=== PATIENT | female | born 1980 | race Caucasian/White ===

== ENCOUNTER 2017-04-15 17:47 | Emergency (ER) | payer MEDICAID ==
[2017-04-15] MEDS ORDERED: LIDOCAINE PATCH 5% TOP STA (18:17)
[2017-04-15] MEDS ORDERED: KETOROLAC 60 MG/2 ML VIAL IM STA (18:17)
[2017-04-15] MEDS ORDERED: oxyCOD/ACETAMIN 5 MG/325 MG TABLET PO STA (18:18)
[2017-04-15] MEDS ORDERED: CYCLOBENZAPRINE 10 MG TABLET PO STA (18:18)
[2017-04-15] MEDS ORDERED: oxyCOD/ACETAMIN 5 MG/325 MG TABLET PO ONE (18:20)
[2017-04-15] MEDS ORDERED: KETOROLAC 60 MG/2 ML VIAL ONE (18:20)
[2017-04-15] MEDS ORDERED: CYCLOBENZAPRINE 10 MG TABLET PO ONE (18:20)
[2017-04-15] MEDS ORDERED: LIDOCAINE PATCH 5% TOP ONE (18:21)
--- NOTE | 2017-04-15 18:31 | ED Physician Documentation ---
History of Present Illness - Stated complaint Stated Complaint: LOW BACK PX - Chief complaint Chief Complaint: Back Pain - Additonal information Additional information: hx from pt 37 f was weed-whacking last week next day back was sore that has increased had chiropractor adjustment today and became too painful to move so sent to the ER no numbness weakness incont denies preg Review of Systems Constitutional: denies: Fever Cardiac: denies: Chest pain / pressure Respiratory: denies: Dyspnea GI: denies: Abdominal Pain : denies: Incontinent, Now EGA Musculoskeletal: reports: Back pain Neurologic: denies: Focal weakness, Numbness Endocrine: denies: Easy bruising / bleeding Immunocompromised: denies: Immunocompromised PD PAST MEDICAL HISTORY - Past Medical History Respiratory: Pneumonia - Past Surgical History 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 - Present Medications Home Medications: Ambulatory Orders Medication Instructions Recorded Confirmed Cyclobenzaprine [Flexeril] 10 mg PO TID PRN #20 tablet 04/15/17 Ibuprofen [Motrin] 800 mg PO Q8H PRN #30 tablet 04/15/17 Lidocaine Patch 5% [Lidoderm Patch] 1 each TOP DAILY PRN #10 patch 04/15/17 - Allergies Allergies/Adverse Reactions: Allergies Allergy/AdvReac Type Severity Reaction Status Date / Time Sulfa (Sulfonamide AdvReac Nausea Verified 04/15/17 17:56 Antibiotics) - Social History Does the pt smoke?: Yes Smoking Status: Current every day smoker Does the pt drink ETOH?: Yes Does the pt have substance abuse?: No - Immunizations Immunizations are current?: Yes - POLST Patient has POLST: No PD ED PE NORMAL - Vitals Vital signs reviewed: Yes - General General: Alert and oriented X 3 - Cardiac Cardiac: RRR - Respiratory Respiratory: No respiratory distress, Clear bilaterally - Abdomen Abdomen: Soft, Non tender - Back Back: Other (diffuse lumbar ST TTP and limited ROM, no focal bony TTP swelling or erythema) - Neuro Neuro: No motor deficit, No sensory deficit, Other (no clonus, patellar DTR 2/4 , hip flex knee ext foot dorsi plantar and great toe extension intact) Results - Vitals Vitals: Vital Signs - 24 hr 04/15/17 04/15/17 17:54 18:56 Temperature 36.9 C Heart Rate 97 78 Respiratory 16 16 Rate Blood Pressure 130/82 H 117/82 H O2 Saturation 100 Oxygen O2 Source Room air PD MEDICAL DECISION MAKING - ED course ED course: given tradol lido patch flexeril percocet Departure - Departure Disposition: 01 Home, Self Care Clinical Impression: Low back pain Qualifiers: Chronicity: acute Back pain laterality: bilateral Sciatica presence: without sciatica Qualified Code(s): M54.5 - Low back pain Condition: Good Instructions: ED Sprain Strain Lumbar Prescriptions: Cyclobenzaprine [Flexeril] 10 mg PO TID PRN #20 tablet PRN Reason: Spasms Lidocaine Patch 5% [Lidoderm Patch] 1 each TOP DAILY PRN #10 patch PRN Reason: Pain Ibuprofen [Motrin] 800 mg PO Q8H PRN #30 tablet PRN Reason: Pain Comments: Please follow up with your PMD about your blood pressure - it was high today Forms: Activity restrictions Discharge Date/Time: 04/15/17 18:57
[2017-04-15 18:57] VITALS: BP 117/82
== END 2017-04-15 18:57 | disposition home or self-care (01) ==
LOC: ED 17:47
DX: M54.5 Low back pain (principal); F17.200 Nicotine dependence, unspecified, uncomplicated
CPT/HCPCS: 96372; 99283; A9270

== ENCOUNTER 2017-05-08 16:23 | Emergency (ER) | payer MEDICAID ==
[2017-05-08 16:29] VITALS: BP 105/66
--- NOTE | 2017-05-08 17:05 | ED Physician Documentation ---
PD HPI SKIN - Stated complaint Stated Complaint: ARM PX - Chief complaint Chief Complaint: Ext Problem - History obtained from History obtained from: Patient - History of Present Illness Timing - onset: How many days ago (2) Timing - duration: Days (2) Timing - details: Abrupt onset, Still present (she had injected IV heroin in site 2 days ago and has had rapid increase in swelling, redness, pain.) Location: RUE (antecubital area) Quality / character: Painful, Raised, Swelling. No: Draining Associated symptoms: No: Fever, Myalgias Contributing factors: Other (IVDU heroin) Similar symptoms before: No diagnosis (has had small abscesses with IV injection sites, that have opened and faded on their own. 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 05/08/17 - Allergies Allergies/Adverse Reactions: Allergies Allergy/AdvReac Type Severity Reaction Status Date / Time Sulfa (Sulfonamide AdvReac Nausea Verified 04/15/17 17:56 Antibiotics) - Social History Does the pt smoke?: Yes Smoking Status: Current every day smoker Does the pt drink ETOH?: Yes Does the pt have substance abuse?: Yes Substance Use and Type: Marijuana, Heroin - Immunizations Immunizations are current?: Yes - POLST Patient has POLST: No PD ED PE NORMAL - Vitals Vital signs reviewed: Yes - General General: Alert and oriented X 3, No acute distress, Well developed/nourished - Neck Neck: Supple, no meningeal sign, No adenopathy - Cardiac Cardiac: RRR, No murmur - Respiratory Respiratory: Clear bilaterally - Abdomen Abdomen: Soft, Non tender - Derm Derm: Normal color, Warm and dry - Extremities Extremities: Other (right antecubital area with swelling, redness, tenderness localized. Bedside U/S shows the antcubital vein running there is pushed deep to the abscess. ) - Neuro Neuro: No motor deficit, No sensory deficit Results - Vitals Vitals: Oxygen O2 Source Room air - Labs Labs: Microbiology 05/08/17 17:37 Wound Culture - Final Arm - Right Staphylococcus Aureus Procedures - Abscess I&D (location) right antecubital Preparation: Confirmed with ultrasound, Lidocaine 1%, With epi Incision: Incised with scalpel, Purulent drainage, Irrigated, Culture obtained. No: Packed Other: Pt tolerated well, Dressing applied, Antibiotic prescribed PD MEDICAL DECISION MAKING - ED course Complexity details: considered differential (antecub abscess with IV drug use. f /w culture obtained. ), d/w patient Departure - Departure Disposition: 01 Home, Self Care Clinical Impression: Abscess of antecubital fossa Condition: Stable Record reviewed to determine appropriate education?: Yes Instructions: ED Abscess IandD Follow-Up: [facility] [Provider Group] Prescriptions: Doxycycline Hyclate 100 mg PO BID #20 tablet Chlorhexidine Gluconate [Hibiclens] 10 ml TP DAILY #473 ml Mupirocin 1 applic TP TID #15 oint...g. Comments: Warm moist towels to the infection area 2-3 times a day. This improves blood flow and helps drainage. Clean with soap and water and apply antibiotic ointment after that. Continue to work with the geriatric social work professor about drug rehab programs. For the current infection Take doxycycline twice daily for 7-10 days until fully cleared. Use mupirocin topical antibiotic locally at that and other red spots. Use chlorhexidine body wash daily Head To Toe to reduce overall germ load on your skin and try to reduce further infections. Discharge Date/Time: 05/08/17 17:54
[2017-05-08] MEDS ORDERED: DOXYCYCLINE 100 MG TABLET PO STA (17:37)
[2017-05-08] MEDS ORDERED: DOXYCYCLINE 100 MG TABLET PO ONE (17:43)
== END 2017-05-08 17:54 | disposition home or self-care (01) ==
LOC: ED 16:23
DX: L02.413 Cutaneous abscess of right upper limb (principal); F11.90 Opioid use, unspecified, uncomplicated; F17.200 Nicotine dependence, unspecified, uncomplicated
CPT/HCPCS: 10060; 87070; 87077; 87181; 87205; 99283; A9270

== ENCOUNTER 2017-12-06 20:43 | Emergency (ER) | payer MEDICAID ==
[2017-12-06 21:04] LABS: BILIRUBIN,URINE NEGATIVE (NEGATIVE); GLUCOSE, URINE (UA) NEGATIVE (NEGATIVE); KETONES,URINE (UA) NEGATIVE (NEGATIVE); LEUKOCYTE ESTERASE, URINE MODERATE (NEGATIVE); NITRITE,URINE POSITIVE (NEGATIVE); OCCULT BLOOD,URINE LARGE (NEGATIVE); PROTEIN,URINE 100 mg/dL (NEGATIVE); UROBILINOGEN,URINE 0.2 (NORMAL) E.U./dL (NORMAL)
[2017-12-06 21:05] LABS: CLARITY,URINE CLOUDY (CLEAR)
[2017-12-06 21:07] LABS: HCG UR QUAL NEGATIVE
--- NOTE | 2017-12-06 21:09 | ED Physician Documentation ---
PD HPI FEMALE - Stated complaint Stated Complaint: FEMALE /OOZ OF LT LEG - Chief complaint Chief Complaint: Abd Pain - History obtained from History obtained from: Patient - History of Present Illness Timing - onset: Yesterday (has had UTi symptoms for 2 days. Also has thigh laceration that was healing okay but now with some redness for couple of days, increasing.) Timing - details: Gradual onset Associated symptoms: Back pain (mild to right), Dysuria, Urinary frequency. No : Fever, Pelvic pain, Vaginal pain, Vaginal discharge, Genital sore/lesion Contributing factors: No: Exposed to STD Similar symptoms before: Diagnosis (UTI) Recently seen: Not recently seen Review of Systems Constitutional: denies: Fever, Chills GI: reports: Nausea. denies: Vomiting, Diarrhea : reports: Dysuria, Frequency. 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 05/08/17 Cephalexin [Keflex] 500 mg PO QID #24 capsule 12/06/17 Ondansetron Odt [Zofran] 4 mg TL Q6H PRN #15 tablet 12/06/17 - Allergies Allergies/Adverse Reactions: Allergies Allergy/AdvReac Type Severity Reaction Status Date / Time Sulfa (Sulfonamide AdvReac Nausea Verified 12/06/17 20:50 Antibiotics) - Social History Does the pt smoke?: Yes Smoking Status: Current every day smoker Does the pt drink ETOH?: Yes Does the pt have substance abuse?: Yes - Immunizations Immunizations are current?: Yes - POLST Patient has POLST: No PD ED PE NORMAL - Vitals Vital signs reviewed: Yes - General General: Alert and oriented X 3, No acute distress, Well developed/nourished - Cardiac Cardiac: RRR, No murmur - Respiratory Respiratory: Clear bilaterally - Abdomen Abdomen: Soft, Non tender - Female Female : Deferred - Rectal Rectal: Deferred - Back Back: No CVA TTP - Derm Derm: Normal color, Warm and dry, Other (left anterior thigh with abrasion/ laceration with surround redness but no current drainage and no fluctuance/ induration. ) Results - Vitals Vitals: Vital Signs - 24 hr 12/06/17 12/06/17 20:48 21:45 Temperature 36.2 C L 36.4 C L Heart Rate 91 86 Respiratory 16 16 Rate Blood Pressure 114/83 H 131/87 H O2 Saturation 100 98 Oxygen O2 Source Room air - Labs Labs: Laboratory Tests 12/06/17 12/06/17 20:55 20:55 Urine Color YELLOW Urine Clarity CLOUDY Urine pH 7.0 Ur Specific [place] 1.020 1.020 Urine Protein 100 H Urine Glucose (UA) NEGATIVE Urine Ketones NEGATIVE Urine Occult Blood LARGE H Urine Nitrite POSITIVE H Urine Bilirubin NEGATIVE Urine Urobilinogen 0.2 (NORMAL) Ur Leukocyte Esterase MODERATE H Urine RBC 11-25 H Urine WBC >25 H Urine WBC Clumps PRESENT Ur Squamous Epith Cells FEW Squamous Urine Bacteria Few Ur Microscopic Review INDICATED Urine Culture Comments INDICATED Urine HCG, Qual NEGATIVE PD MEDICAL DECISION MAKING - ED course Complexity details: considered differential (unrelated problems. Has a week old thigh lac with redness and swelling now, no drainage and is not abscessed. Also UTI symptoms. Given the cellulitis and not abscess, I would treat UTi with Keflex rather than Bactrim.), d/w patient Departure - Departure Disposition: Home, Self Care Clinical Impression: UTI (urinary tract infection) Qualifiers: Urinary tract infection type: acute cystitis Hematuria presence: with hematuria Qualified Code(s): N30.01 - Acute cystitis with hematuria Thigh laceration Qualifiers: Encounter type: initial encounter Laterality: left Qualified Code(s): S71.112A - Laceration without foreign body, left thigh, initial encounter Condition: Stable Record reviewed to determine appropriate education?: Yes Instructions: ED Infec Skin Cellulitis, ED UTI Cystitis Female Prescriptions: Cephalexin [Keflex] 500 mg PO QID #24 capsule Ondansetron Odt [Zofran] 4 mg TL Q6H PRN #15 tablet PRN Reason: Nausea / Vomiting Comments: The thigh wound infection looks like cellulitis which is more commonly streptococcal infection. It does not seem abscessed which would be more likely staph. As such we can treat the bladder infection with cephalexin and that should hopefully cover the wound infection as well. Drink lots of fluids. Tylenol if needed for pains and fevers. Ondansetron if needed for nausea. Cephalexin 4 times a day as directed. Recheck if either of the wound infection or urinary tract symptoms are not improved over the next few days. Discharge Date/Time: 12/06/17 21:45
[2017-12-06 21:14] LABS: BACTERIA,URINE Few /HPF (None Seen); SQUAMOUS EPITHELIAL CELL,UR FEW Squamous (<= Few); WBC CLUMPS,URINE PRESENT
[2017-12-06] MEDS ORDERED: cephALEXin 250 MG CAPSULE PO STA (21:26)
[2017-12-06] MEDS ORDERED: MUPIROCIN 2% OINT 1 GM TOP STA (21:26)
[2017-12-06] MEDS ORDERED: ONDANSETRON ODT 4 MG TABLET TL STA (21:26)
[2017-12-06] MEDS ORDERED: ACETAMINOPHEN 325 MG TABLET PO STA (21:26)
[2017-12-06] MEDS ORDERED: ONDANSETRON ODT 4 MG Prepack 2 TL PRN (21:26)
[2017-12-06 21:48] VITALS: BP 131/87
== END 2017-12-06 21:45 | disposition home or self-care (01) ==
LOC: ED 20:43
DX: N30.01 Acute cystitis with hematuria (principal); S71.112A Laceration without foreign body, left thigh, initial encounter; W22.09XA Striking against other stationary object, initial encounter; Y93.31 Activity, mountain climbing, rock climbing and wall climbing; L03.116 Cellulitis of left lower limb; F17.200 Nicotine dependence, unspecified, uncomplicated
CPT/HCPCS: 81001; 81025; 87077; 87086; 87181; 99283; 99284; A9270; Q0162; 81003

== ENCOUNTER 2018-02-23 00:22 | Outpatient (CLI) | payer OTHER, MEDICAID | END 2018-02-23 00:23 | disposition critical access hospital (66) | LOC: EMS 00:22 | PROVIDERS: ATTEND Surgery | DX: R42 Dizziness and giddiness (principal); R51 Headache; R11.0 Nausea; M54.2 Cervicalgia; V47.5XXA Car driver injured in collision with fixed or stationary object in traffic accident, initial encounter; Y92.413 State road as the place of occurrence of the external cause | CPT/HCPCS: A0425; A0427 ==

== ENCOUNTER 2018-02-23 00:54 | Emergency (ER) | payer OTHER, MEDICAID ==
[2018-02-23 01:01] VITALS: BP 162/106
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
--- NOTE | 2018-02-23 01:54 | CT Preliminary Report ---
Exam: CT HEAD W/O IMPRESSION: Normal head CT. [facility] SITE ID: [id number]
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
== END 2018-02-23 02:13 | disposition left against medical advice (07) ==
LOC: EDUNIT# → ED 00:54
DX: I73.00 Raynaud's syndrome without gangrene (principal); F17.200 Nicotine dependence, unspecified, uncomplicated; S09.90XA Unspecified injury of head, initial encounter; Z53.29 Procedure and treatment not carried out because of patient's decision for other reasons; V47.5XXA Car driver injured in collision with fixed or stationary object in traffic accident, initial encounter; Y92.410 Unspecified street and highway as the place of occurrence of the external cause
CPT/HCPCS: 70450; 99283